=== PATIENT | female | born 1980 | race African-American/Black ===

== ENCOUNTER 2021-06-19 08:44 | Outpatient (CLI) | payer OTHER, SELFPAY ==
--- NOTE | 2021-06-19 13:52 | NEURO_ITS ---
PATIENT NUMBER: [id number] IMPRESSION: # Complains of noturnal paesthesia and elbow pain. # Bilateral Carpal Tunnel Syndrome right greater than left. # Bilateral ulnar neuropathy right greater than left. # Needle exam not ordered. Nerve Conduction Studies Anti Sensory Summary Table Stim Site NR Peak (ms) P-T Amp (?V) Site1 Site2 Delta-P (ms) Dist (cm) Sterling (m/s) Left Median Anti Sensory (2-3nd Digit) Wrist 5.5 31.7 Wrist 2-3nd Digit 5.5 14.0 25 Wrist 5.8 14.3 Wrist 2-3nd Digit 5.5 14.0 25 Right Median Anti Sensory (2-3nd Digit) Wrist 6.5 20.6 Wrist 2-3nd Digit 6.5 14.0 22 Wrist 5.8 58.2 Wrist 2-3nd Digit 6.5 14.0 22 Left Radial Anti Sensory (Base 1st Digit) Wrist 1.9 20.9 Wrist Base 1st Digit 1.9 0.0 Right Radial Anti Sensory (Base 1st Digit) Wrist 2.1 56.7 Wrist Base 1st Digit 2.1 0.0 Left Ulnar Anti Sensory (5th Digit) Wrist 2.6 34.5 Wrist 5th Digit 2.6 14.0 54 Right Ulnar Anti Sensory (5th Digit) Wrist 2.5 47.1 Wrist 5th Digit 2.5 14.0 56 Motor Summary Table Stim Site NR Onset (ms) O-P Amp (mV) Site1 Site2 Delta-0 (ms) Dist (cm) Sterling (m/s) Left Median Motor (Abd Poll Brev) Wrist 5.2 2.6 Elbow Wrist 4.3 26.0 60 Elbow 9.5 2.7 Right Median Motor (Abd Poll Brev) Wrist 7.5 5.6 Elbow Wrist 4.5 28.0 62 Elbow 12.0 6.1 Left Ulnar Motor (Abd Dig Minimi) Wrist 2.4 7.7 A Elbow Wrist 5.1 29.0 57 A Elbow 7.5 5.2 B Elbow Wrist 3.5 24.0 69 B Elbow 5.9 5.8 Right Ulnar Motor (Abd Dig Minimi) Wrist 2.4 7.9 A Elbow Wrist 5.5 28.0 51 A Elbow 7.9 5.8 B Elbow Wrist 3.5 22.0 63 B Elbow 5.9 7.3 F Wave Studies NR F-Lat (ms) L-R F-Lat (ms) Left Median (Mrkrs) (Abd Poll Brev) 28.65 3.10 Right Median (Mrkrs) (Abd Poll Brev) 31.75 3.10 Left Ulnar (Mrkrs) (Abd Dig Min) 27.13 1.35 Right Ulnar (Mrkrs) (Abd Dig Min) 28.48 1.35 MTDD
== END 2021-06-19 08:45 | disposition home or self-care (01) ==
DX: G56.03 Carpal tunnel syndrome, bilateral upper limbs (principal); G56.23 Lesion of ulnar nerve, bilateral upper limbs
CPT/HCPCS: 95911